=== PATIENT | female | born 1950 | race Hispanic/Latino ===

== ENCOUNTER → 2022-02-22 | Outpatient (CLI) | payer OTHER ==
[~2022-02-22] MED LIST: REGADENOSON 0.4 MG/5 ML PF SYG IVP SCH
== END | disposition home or self-care (01) ==
LOC: EDUNIT# 01-25 08:40 → SHCH 09:44
PROVIDERS: ATTEND Internal Medicine Cardiovascular Disease
DX: I44.7 Left bundle-branch block, unspecified (principal); I11.9 Hypertensive heart disease without heart failure; R94.39 Abnormal result of other cardiovascular function study; I95.1 Orthostatic hypotension; I73.9 Peripheral vascular disease, unspecified; R09.89 Other specified symptoms and signs involving the circulatory and respiratory systems; Z95.1 Presence of aortocoronary bypass graft; Z79.82 Long term (current) use of aspirin; Z79.899 Other long term (current) drug therapy
CPT/HCPCS: 78452; 96374; 93017; J2785; A9500 ×2

== ENCOUNTER → 2023-09-11 | Outpatient (CLI) | payer OTHER ==
[~2023-09-11] MED LIST changes: +ALBU18HF7 IH; +ALEN70TA80 PO; +AMLO-257 PO; +ATOR10 PO; +CHOL400T4 PO; +LEVO50TA11 PO; +LEVO5TAB13 PO; +LISI40TA9 PO; +METO25TA6 PO; -REGADENOSON 0.4 MG/5 ML PF SYG IVP SCH
== END | disposition home or self-care (01) ==
LOC: SHCH 08:14
PROVIDERS: ATTEND Internal Medicine
DX: I73.9 Peripheral vascular disease, unspecified (principal)
CPT/HCPCS: 93925

== ENCOUNTER → 2024-03-29 | Outpatient (CLI) | payer OTHER, MEDICARE | END | disposition home or self-care (01) | LOC: LAB 13:57 | PROVIDERS: ATTEND Internal Medicine | DX: I25.10 Atherosclerotic heart disease of native coronary artery without angina pectoris (principal) | CPT/HCPCS: 36415; 80048 ==

== ENCOUNTER → 2024-04-12 | Outpatient (CLI) | payer OTHER, MEDICARE ==
[~2024-04-12] MED LIST changes: +IOHEXOL-350 75 ML VIAL IV ONE
--- NOTE | 2024-04-12 12:33 | HMCIMG ---
CT ANGIO ABD AORTA W RUNOFF REASON: Essential (primary) hypertension COMPARISON: None TECHNIQUE: Images are obtained from lung bases to the symphysis pubis before and after IV contrast, 150 cc Omnipaque 350. 2-D and 3-D multiplanar reconstruction images were performed. FINDINGS: There is moderate plaque in the abdominal aorta without aneurysm or stenosis. There is extensive calcification origin of the superior mesenteric artery with moderate narrowing. There is plaque in the origin of the celiac axis with apparent severe narrowing. Right renal artery appears patent, left renal artery appears patent as well. Common and external iliac arteries are mildly atherosclerotic but appear patent. Right leg shows patent to the common femoral artery. There are circumferential calcification in the superficial femoral artery without significant focal narrowing. Popliteal artery is patent, the mid popliteal is obscured by streak artifact from a knee joint prosthesis. Distal popliteal is patent. Anterior tibial artery is patent to the ankle which is patent into the dorsalis pedis artery. Posterior tibial artery is occluded at its origin. Peroneal artery is patent to the ankle, the posterior tibial in the foot appears to be supplied by right chest from the peroneal artery. Left leg runoff shows patent superficial femoral and popliteal arteries. Trifurcation vessels are initially intact. Posterior tibial is occluded proximally. Peroneal is occluded in the calf. Anterior tibial is patent to the ankle which supplies the dorsalis pedis. There is small amount of reconstitution of the posterior tibial artery from musculocutaneous collaterals. Nonvascular images show no significant finding. IMPRESSION: 1. 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 2. No significant aortoiliac occlusive disease. 3. Right leg runoff shows normal findings to the level of the trifurcation, the posterior tibial artery is occluded proximally, peroneal and anterior tibial arteries are patent to the ankle with dorsalis pedis patent and with the posterior tibial reconstituted by peroneal branches. 4. Left leg shows patent runoff to the trifurcation, posterior tibial is occluded proximally, the peroneal is occluded distally, the anterior tibial artery is patent to the ankle with then supplies a patent dorsalis pedis artery. 5. There is faint reconstitution posterior tibial distally from muscular cutaneous collaterals.
== END | disposition home or self-care (01) ==
LOC: RAH 09:21
PROVIDERS: ATTEND Internal Medicine
DX: I25.10 Atherosclerotic heart disease of native coronary artery without angina pectoris (principal); I65.23 Occlusion and stenosis of bilateral carotid arteries; I73.9 Peripheral vascular disease, unspecified; I10 Essential (primary) hypertension
CPT/HCPCS: 75635; Q9967

== ENCOUNTER → 2024-04-17 | Outpatient (CLI) | payer OTHER, MEDICARE ==
[~2024-04-17] MED LIST changes: -IOHEXOL-350 75 ML VIAL IV ONE
--- NOTE | 2024-04-19 09:03 | HMCSR ---
APPROVED REPORT Laterality: Bilateral Indications i25.10, i65.23 Doppler Spectral Velocity Analysis PSV / EDVPSV / EDV ECA (R) 116 / cm/sECA (L) 162 / cm/s dICA (R) 103 / 20 cm/sdICA (L) 166 / 26 cm/s Carlton (R) 185 / 34 cm/smICA (L) 188 / 36 cm/s pICA (R) 400 / 116 cm/spICA (L) 205 / 39 cm/s dCCA (R) 105 / 15 cm/sdCCA (L) 88 / 11 cm/s mCCA (R) 95 / 15 cm/smCCA (L) 95 / 14 cm/s pCCA (R) 63 / 12 cm/spCCA (L) 61 / 9 cm/s Vert (R) 16 / cm/sVert (L) 56 / cm/s Subl. (R) 276 / cm/sSubl. (L) 177 / cm/s ICA/CCA 3.81ICA/CCA 2.16 Technologist Impression Moderate to severe heterogenous calcified plauqe in the bilateral carotids. Right ICA shows evidence of a >80% stenosis. 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 Left ICA shows evidence of 50-69% stenoiss. Left vertebral artery demonstrates antegrade flow. Conclusion Right ICA shows evidence of a >80% stenosis. 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 Left ICA shows evidence of 50-69% stenoiss. Left vertebral artery demonstrates antegrade flow. Conclusion Right ICA shows evidence of a >80% stenosis. 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 Left ICA shows evidence of 50-69% stenoiss. Left vertebral artery demonstrates antegrade flow.
== END | disposition home or self-care (01) ==
LOC: SHCH 10:42
PROVIDERS: ATTEND Internal Medicine
DX: I65.23 Occlusion and stenosis of bilateral carotid arteries (principal); I25.10 Atherosclerotic heart disease of native coronary artery without angina pectoris
CPT/HCPCS: 93880

== ENCOUNTER → 2025-03-08 | Outpatient (CLI) | payer OTHER, MEDICAID ==
[~2025-03-08] MED LIST changes: +LISI40TA15 PO; -LISI40TA9 PO
--- NOTE | 2025-03-08 16:08 | HMCSR ---
APPROVED REPORT EXAM: Two-dimensional and M-mode echocardiogram with Doppler and color Doppler. INDICATION ICD: I13.10, R42, R06.09 2D Dimensions RVDd 3.7 cm LVEF(%) 38.6 (>50%) LVED Vol(simp.) 132.0 mL IVSd 1.2 (0.7-1.1cm) FS(%) 19 % LVES Vol(simp.) 74.0 mL LVDd 5.2 (3.8-5.6cm) LA (2D) 4.8 (1.6-4.0cm) LVEF(%, simp.) 44 % PWd 1.3 (0.7-1.1cm) Ao Root(2D) 2.6 (2.0-3.7cm) LA ESV INDEX (BP) 74.39 mL/m2 LVDs 4.2 (2.5-4.0cm) LVOT diam 2.2 (1.8-2.4cm) IVC diam 1.6 cm M-Mode Dimensions EPSS 1.6 cm LA (MM) 5.2 (1.6-4.0cm) Ao Root(MM) 3.3 (2.0-3.7cm) Aortic Valve AoV Vmax 0.9 m/s Ao Peak GR 3.5 mmHg LVOT Vmax 0.5 m/s AoV VTI 0.3 m Ao Mean GR 1.9 mmHg LVOT VTI 0.14 m SABINA (VMAX) 2.09 cm2 SABINA (VTI) 2.0 cm2 Mitral Valve MV E Vmax 146.4 cm/s DECEL Time 152 ms MV A Vmax 57.8 cm/s P 1/2 T 41 ms E/A ratio 2.5 MVA (PHT) 5.3 cm2 TDI E/E' Medial 53.4 E/E' Lateral 29.6 Medial E' Peak V 2.74 cm/s Lateral E' Peak V 4.95 cm/s Pulmonary Valve PV Vmax 0.7 m/s PV VTI 0.15 m PV Mean GR 1.2 mmHg PV Peak GR 1.8 mmHg PI End Bessy. Venkat 137.7 cm/s Tricuspid Valve TR Vmax 3.2 m/s RAP (EST) 3 mmHg RVSP 45.2 mmHg TR Peak GR 42.2 mmHg Left Ventricle The left ventricle is normal size. There is global hypokinesis of the left ventricle. Mild concentric left ventricular hypertrophy. LVEF is 40-45%. Stage III diastolic dysfunction. Right Ventricle The right ventricle is normal size. Right ventricular systolic function is reduced. Atria The left atrium is severely dilated. The right atrium size is normal. Aortic Valve The aortic valve is normal in structure. Trace of aortic regurgitation is present. There is no aortic valvular stenosis. Mitral Valve There is mitral annular calcification. The mitral valve leaflets are thickened. There is mild mitral valve regurgitation noted. There is no mitral valve stenosis. Tricuspid Valve The tricuspid valve is normal in structure and function. There is mild tricuspid valve regurgitation noted. Pulmonic Valve Pulmonic valve is not well visualized. There is trace of pulmonic valvular regurgitation. Great Vessels The aortic root is normal in size. The IVC is normal in size and collapses >50% with inspiration. Pericardium There is no pericardial effusion. Other Information Quality : Adequate Conclusion The left ventricle is normal size. LVEF is 40-45% with global hypokinesis of the left ventricle. Mild concentric left ventricular hypertrophy. Stage III diastolic dysfunction. Right ventricular systolic function is reduced by TAPSE (1.2cm) The left atrium is severely dilated. No hemodynamically significant valvular abnormalities. There is no pericardial effusion.
== END | disposition home or self-care (01) ==
LOC: RAH 11:31
PROVIDERS: ATTEND Internal Medicine
DX: I08.1 Rheumatic disorders of both mitral and tricuspid valves (principal); I13.10 Hypertensive heart and chronic kidney disease without heart failure, with stage 1 through stage 4 chronic kidney disease, or unspecified chronic kidney disease; R06.09 Other forms of dyspnea; R42 Dizziness and giddiness; N18.9 Chronic kidney disease, unspecified
CPT/HCPCS: 93306